=== PATIENT | male | born 1965 | race Caucasian/White ===

== ENCOUNTER 2017-02-27 05:25 | Day surgery (SDC) | payer BC ==
[~2017-02-27 05:25] MED LIST: Dextrose 5%-0.45% NaCl 1,000 ML IV SCH; Sodium Chloride 0.9% 10 ML Syringe FLUSH PRN
[2017-02-27] MEDS ORDERED: fentaNYL 100 MCG/2 ML SDV IV ONE ×3 (05:26→07:13)
[2017-02-27] MEDS ORDERED: Midazolam 1 MG/ML 2 ML SDV IV ONE ×7 (05:26→07:19)
[2017-02-27] MEDS ORDERED: fentaNYL 100 MCG/2 ML SDV ONE (06:17)
[2017-02-27] MEDS ORDERED: Midazolam 1 MG/ML 2 ML SDV ONE (06:17)
[2017-02-27] MEDS ORDERED: Dextrose 5%-0.45% NaCl 1,000 ML IV SCH (06:57)
--- NOTE | 2017-02-27 08:26 | OR ---
DATE: 02/27/2017 PROCEDURE PERFORMED: Total colonoscopy. INSTRUMENT USED: CF-H180AL Olympus videocolonoscope. PREMEDICATIONS: Fentanyl 100 mcg intravenous, Versed 4 mg intravenous. Nasal O2 cannula. The procedure was done under pulse oximetry, BP recording, and compliance monitor. INDICATION: The patient with persistent lower abdominal pain and bloating unexplained, not responsive to medical measures. Colonoscopic examination is done for detection of any polypoid lesions and removal, endoscopic hemostasis therapy if needed. DESCRIPTION OF PROCEDURE: Initial rectal exam was unremarkable. Rigid anoscopy showed small internal hemorrhoids without bleeding from them. The colonoscope was passed with ease up to the ileocecal area. Photographs were taken of the normal-appearing cecum identified by landmarks of appendiceal orifice and double- bulged ileocecal folds. No bleeding was noted from any of the visualized areas at the commencement of the examination. No stricture. No vascular ectasia. No large isolated ulcerations seen. No evidence of diffuse inflammatory bowel disease in the form of friability, contact bleeding, or ulcerations. No polyp or tumor mass identified. Probing the proximal sides of folds and flexures, using adequate distention and clearing of the stool material, withdrawal of the scope was made, cecum to rectum time over 6 minutes. No bleeding was noted from any of the visualized areas at the completion of the examination. IMPRESSION: Internal hemorrhoids. The patient tolerated the procedure well. [facility] /[id number]
[2017-02-27 10:44] VITALS: BP 114/75
== END 2017-02-27 09:32 | disposition home or self-care (01) ==
LOC: DL.ENDO 05:25
PROVIDERS: ATTEND Internal Medicine Gastroenterology
DX: K64.8 Other hemorrhoids (principal); E66.9 Obesity, unspecified; Z98.890 Other specified postprocedural states; Z87.891 Personal history of nicotine dependence; Z68.30 Body mass index [BMI] 30.0-30.9, adult
CPT/HCPCS: 45378; J2250; J3010; J7042

== ENCOUNTER 2025-01-31 14:34 | Emergency (ER) | payer OTHER, BC ==
[2025-01-31 15:11] LABS: BASOPHILS PERCENT AUTO 1.1 % (0.0-1.0); EOSINOPHILS PERCENT AUTO 5.8 % (1.0-3.0); LYMPHOCYTES PERCENT AUTO 20.4 % (20.5-50.1); MONOCYTES PERCENT AUTO 10.8 % (2-8); NEUTROPHILS PERCENT AUTO 61.9 % (42.2-75.2); PLATELET COUNT,PLT 191 10^3/uL (150-450); RED BLOOD CELL COUNT 5.07 10^6/uL (4.6-6.2); WHITE BLOOD CELL COUNT,WBC 5.4 10^3/uL (5.0-10.0)
[2025-01-31 15:13] VITALS: BP 150/86; PULSE 94
[2025-01-31 15:32] LABS: APPEARANCE,URINE CLEAR (CLEAR); GLUCOSE,URINE NEGATIVE (NEGATIVE); OCCULT BLOOD,URINE NEGATIVE (NEGATIVE)
[2025-01-31 15:35] LABS: AMPHETAMINES,URINE NEGATIVE (NEGATIVE); BARBITURATES,URINE NEGATIVE (NEGATIVE); MDMA (ECSTASY), URINE NEGATIVE (NEGATIVE); METHAMPHETAMINES,URINE NEGATIVE (NEGATIVE); OPIATES,URINE NEGATIVE (NEGATIVE); OXYCODONE,URINE NEGATIVE (NEGATIVE); PHENCYCLIDINE,URINE NEGATIVE (NEGATIVE); TCA,URINE NEGATIVE (NEGATIVE)
[2025-01-31 15:40] LABS: A/G RATIO 1.0; ALANINE AMINOTRANSFERASE,ALT 24.0 U/L (16-63); ASPARTATE AMNIOTRANSFERASE,AST 13.0 U/L (15-37); BILIRUBIN TOTAL 0.4 mg/dL (0.2-1.0); BLOOD UREA NITROGEN,BUN 16.0 mg/dL (7-18); CARBON DIOXIDE,CO2 31.0 mmol/L (21-32); CHLORIDE,CL 102.0 mmol/L (98-107); CREATININE 1.01 mg/dL (0.70-1.30); EST CRCL DRUG DOSING (CG) 79.3 mL/min; GLUCOSE RANDOM 119.0 mg/dL (70-99); POTASSIUM,K 4.3 mmol/L (3.5-5.1); PROTEIN TOTAL,TP 6.9 g/dL (6.4-8.2); SODIUM,NA 139.0 mmol/L (136-145)
[2025-01-31 15:41] LABS: ESTIMATED GFR 85.0 mL/min (>=60)
[2025-01-31] MEDS: Diphtheria,Pertussis(Acell),Tetanus Vaccine 0.5 ML Syringe IM ONE (15:56)
== END 2025-01-31 15:58 | disposition home or self-care (01) ==
LOC: DL.ED 14:34
DX: R55 Syncope and collapse (principal); Z23 Encounter for immunization; E66.9 Obesity, unspecified; Z68.33 Body mass index [BMI] 33.0-33.9, adult; V89.2XXA Person injured in unspecified motor-vehicle accident, traffic, initial encounter
CPT/HCPCS: 36415; 71046; 80053; 80305-QW; 81003; 83735; 84484; 85025; 90471; 90715; 99285-25